=== PATIENT | female | born 1955 | race Caucasian/White ===

== ENCOUNTER 2018-06-06 21:20 | Emergency (ER) | payer BC ==
[2018-06-06 21:26] VITALS: BP 162/89
--- NOTE | 2018-06-06 22:28 | ED ---
Lower Extremity - HPI Summary HPI Summary: 62-year-old female presents with right foot injury today. She states she twisted her ankle as she was playing with the dog. She has mild edema to the area. No head injury or loss consciousness. No previous fracture to the area. No knee pain. No other injury. She is still able to ambulate on the area. - History of Current Complaint Chief Complaint: EDExtremityLower Stated Complaint: FALL/RT FT INJURY Time Seen by Provider: 06/06/18 21:30 Pain Intensity: 3 - Allergies/Home Medications Allergies/Adverse Reactions: Allergies Allergy/AdvReac Type Severity Reaction Status Date / Time morphine Allergy See Comment Verified 06/06/18 21:26 PMH/Surg Hx/FS Hx/Imm Hx Endocrine/Hematology History: Denies: Hx Anticoagulant Therapy Cardiovascular History: Denies: Hx Myocardial Infarction Infectious Disease History: No Infectious Disease History: Denies: Traveled Outside the [place] in Last 30 Days - Family History Known Family History: Positive: Hypertension - Social History Alcohol Use: Rare Substance Use Type: Reports: None Smoking Status (MU): Never Smoked Tobacco Review of Systems Negative: Fever Negative: Chest Pain Negative: Shortness Of Breath Positive: Myalgia - right foot pain All Other Systems Reviewed And Are Negative: Yes Physical Exam Triage Information Reviewed: Yes Vital Signs On Initial Exam: Initial Vitals Temp Pulse Resp BP Pulse Ox 98.8 F 79 18 162/89 96 06/06/18 21:22 06/06/18 21:22 06/06/18 21:22 06/06/18 21:22 06/06/18 21:22 Vital Signs Reviewed: Yes Appearance: Positive: Well-Appearing Skin: Positive: Warm, Dry Head/Face: Positive: Normal Head/Face Inspection Eyes: Positive: Normal, Conjunctiva Clear ENT: Positive: Pharynx normal Respiratory/Lung Sounds: Positive: Clear to Auscultation, Breath Sounds Present Cardiovascular: Positive: Normal, RRR Musculoskeletal: Positive: Strength/ROM Intact - right foot, Other - tenderness over 5th metacarpel, good pulses, capillary refill<2 secs Neurological: Positive: Normal Psychiatric: Positive: Normal Diagnostics - Vital Signs Vital Signs Temp Pulse Resp BP Pulse Ox 06/06/18 21:22 98.8 F 79 18 162/89 96 - Laboratory Lab Statement: Any lab studies that have been ordered have been reviewed, and results considered in the medical decision making process. - Radiology foot Xray Interpretation: No Acute Changes Radiology Interpretation Completed By: ED Physician ankle Xray Interpretation: No Acute Changes Radiology Interpretation Completed By: ED Physician Lower Extremity Course/Dx - Course Course Of Treatment: 62-year-old female presents with right foot injury today. She states she twisted her ankle as she was playing with the dog. She has mild edema to the area. No head injury or loss consciousness. No previous fracture to the area. No knee pain. No other injury. She is still able to ambulate on the area. On exam tenderness over fifth metacarpal. Neurovascular intact. X- ray of ankle and foot exam by me as normal. Told to treat with rice. Patient understands agrees with plan. - Diagnoses Differential Diagnosis/HQI/PQRI: Positive: Fracture (Closed), Sprain, Strain Provider Diagnoses: Right foot injury Discharge - Sign-Out/Discharge Documenting (check all that apply): Patient Departure - Discharge Plan Condition: Good Disposition: HOME Patient Education Materials: Foot Sprain (ED) Referrals: Tan AGGARWAL,Jordin Watson [Primary Care Provider] - Additional Instructions: Wear hard sole shoes Ice, elevate Take Tylenol for pain every 6 hours as needed Follow up with primary if no improvement Return to ED if develop or any new or worsening symptoms - Billing Disposition and Condition Condition: GOOD Disposition: Home
--- NOTE | 2018-06-07 08:14 | RAD ---
INDICATION: Right ankle injury. TECHNIQUE: 3 views of the right ankle were obtained. FINDINGS: The bones are in normal alignment. No fracture is seen. Joint spaces appear maintained. There is a spur arising from the inferior calcaneus. IMPRESSION: NO EVIDENCE FOR FRACTURE. R0
--- NOTE | 2018-06-07 08:16 | RAD ---
INDICATION: Right foot injury. TECHNIQUE: 3 views of the right foot were obtained. FINDINGS: There is lateral soft tissue swelling. The bones are in normal alignment. No fracture is seen. Joint spaces appear maintained. IMPRESSION: NO EVIDENCE FOR FRACTURE. R0
== END 2018-06-06 22:47 | disposition home or self-care (01) ==
LOC: ED 21:20
DX: S99.921A Unspecified injury of right foot, initial encounter (principal); M79.671 Pain in right foot; W19.XXXA Unspecified fall, initial encounter; Y92.9 Unspecified place or not applicable
CPT/HCPCS: 99281